=== PATIENT | male | born 1985 | race Caucasian/White ===

== ENCOUNTER 2022-01-13 12:53 | Emergency (ER) | payer OTHER ==
[2022-01-13] MEDS ORDERED: Sodium Chloride 0.9% 10 ML Syringe FLUSH PRN (13:07)
[2022-01-13] MEDS ORDERED: Sodium Chloride 0.9% 2.5 ML Syringe FLUSH PRN (13:07)
[2022-01-13] MEDS ORDERED: Ampicillin/Sulbactam Na 3 GM in Sodium Chloride 0.9% 100 ML IV ONE ×2 (13:12→13:30)
[2022-01-13] MEDS ORDERED: Dexamethasone 10 MG/ML SDV IVPUSH ONE (13:12)
[2022-01-13] MEDS ORDERED: Ondansetron 4 MG/2 ML SDV IVPUSH ONE (13:39)
[2022-01-13] MEDS ORDERED: Morphine 4 MG/ML VIAL IVPUSH ONE (13:39)
[2022-01-13 13:53] LABS: BLOOD UREA NITROGEN,BUN 12 mg/dL (7.0-18.0); CHLORIDE,CL 101 mmol/L (98-107); GLUCOSE RANDOM 108 mg/dL (74-106); POTASSIUM,K 4.3 mmol/L (3.5-5.1); SODIUM,NA 136 mmol/L (136-148)
[2022-01-13] MEDS ORDERED: Iopamidol 755 MG/ML 500 ML Multipack Bottle IVPUSH ONE (18:07)
== END 2022-01-13 15:46 | disposition home or self-care (01) ==
LOC: MW.ED 12:53
DX: S61.212A Laceration without foreign body of right middle finger without damage to nail, initial encounter (principal); Z72.0 Tobacco use
CPT/HCPCS: 36415; 70491; 80053; 85025; 96365; 96375; 99284; J0295; J1100; J2270; J2405; J3490; Q9967